=== PATIENT | male | born 1985 | race American Indian/Alaskan Native ===

== ENCOUNTER 2022-05-24 12:40 | Emergency (ER) | payer OTHER, SELFPAY ==
[2022-05-24 12:54] VITALS: BP 127/75; PULSE 71; RESP 16; TEMP 36.6; O2SAT 99
--- NOTE | 2022-05-24 13:04 | ED.GENADULT ---
HPI - General Adult General Chief complaint: Abdominal Pain Stated complaint: diarrhea, stomach ache Source: patient Mode of arrival: ambulatory Limitations: no limitations History of Present Illness HPI narrative: Patient presents for evaluation of diarrhea for the last five days. He states he was recently in [place] but returned one week ago. No new foods. No recent abx. Denies any abdominal pain, nausea, vomiting, or blood/mucous in the stool. He has tried imodium without considerable improvement in his symptoms thereafter. Four days ago he was assisting his son to use the restroom when he had a near-syncopal event. He experienced diaphoresis and felt like he was going to pass out. He was leaning against the wall and the wall braced him so he did not fall to the floor. He experienced some chills at that time. He did not have any chest pain, palpitations or SOB. He experience some chest tightness a few days ago but that has since resolved. No personal history of COVID. He does not smoke. No ETOH or illicit drug use. His son was experiencing diarrhea but his symptoms have improved. Pt states his symptoms have decreased in frequency. No additional complaints or concerns. Related Data Home Medications Medication Instructions Recorded Confirmed No Home Medications 05/24/22 05/24/22 Allergies Allergy/AdvReac Type Severity Reaction Status Date / Time No Known Allergies Allergy Verified 05/24/22 13:15 Review of Systems Review of Systems: CONSTITUTIONAL: Reports recent episode of diaphoresis and chills, none in the last few days. Denies fevers. EYES: Denies visual changes, redness, or discharge. ENT: Denies rhinorrhea, congestion, sore throat, or otalgia. CARDIOVASCULAR: Denies chest pain, palpitations, or edema. RESPIRATORY: Denies cough or dyspnea. GASTROINTESTINAL: Reports diarrhea. Denies abdominal pain, nausea, vomiting GENITOURINARY: Denies dysuria or hematuria. SKIN: Denies rash or itching. MUSCULOSKELETAL: Denies back pain, joint pain, or myalgia. NEUROLOGIC: Reports recent near syncopal event. Denies headache, numbness, dizziness, or weakness. PSYCHIATRIC: Denies anxiety or depression. [facility] Past Medical History Medical History (Updated 05/24/22 @ 13:46 by Cristobal Atkinson, [employer], BC) No pertinent past medical history Surgical History Surgical History No pertinent past surgical history Family History Family History Mother Family history non-contributory Social History Social History (Updated 05/24/22 @ 13:12 by Cristobal Atkinson, [facility], ) Smoking status: Never smoker Substance use: never Living arrangements: with family Gender identity (if verbalized by the patient): Male Sexual Orientation (if Verbalized by the Patient): Straight or Heterosexual Spiritual care concerns: No Exam Narrative: GENERAL: Well-appearing, well-nourished, and in no acute distress. HEAD: Normocephalic, atraumatic. EYES: PERRLA and EOMI. ENT: Nares clear, no rhinorrhea or epistaxis. Mucous membranes moist. Oropharynx without tonsillar hypertrophy exudate or other lesions. Bilateral TMs pearly chino nonbulging NECK: Supple. No adenopathy or masses. No carotid bruits or JVD CHEST: Clear to auscultation. No respiratory distress. No wheezes rales or rhonchi HEART: Regular rate and rhythm. No murmur heard. Normal peripheral pulses. ABDOMEN: Soft, nontender, nondistended, normal active bowel sounds. EXTREMITIES: Normal range of motion. No edema. SKIN: Warm, dry, no rash. NEURO: No focal deficits. Alert and oriented x3. PSYCH: Normal mood and affect. Course Course Emergency Course: This is a 37-year-old male who presented for evaluation of diarrhea. He had no abdominal tenderness to suggest colitis. COVID and influenza were negative. symptoms are likely viral in or
[2022-05-24 13:13] LABS: Glucose Point of Care 118 mg/dl (65-105)
== END 2022-05-24 13:49 | disposition home or self-care (01) ==
PROVIDERS: Emergency Provider Nurse Practitioner
DX: R19.7 Diarrhea, unspecified (principal); Z20.822 Contact with and (suspected) exposure to COVID-19
CPT/HCPCS: 82948; 87426; 87804; 99213; C9803; G0463

== ENCOUNTER 2022-06-07 13:36 | Emergency (ER) | payer OTHER, SELFPAY ==
[2022-06-07 13:47] VITALS: BP 137/72; PULSE 71; RESP 20; TEMP 36.3; O2SAT 97
[2022-06-07 13:52] VITALS: BP 137/72; PULSE 71; RESP 20; TEMP 36.3; O2SAT 97
--- NOTE | 2022-06-07 14:25 | ED.URI ---
HPI - URI/Sore Throat General Chief Complaint: Upper Respiratory Infection Stated Complaint: chest smiley,asthma Time Seen by Provider: 06/07/22 14:25 Source: patient, RN notes reviewed and old records reviewed Mode of arrival: ambulatory Limitations: no limitations History of Present Illness HPI Narrative: 37-year-old male who presents to [facility] with complaints of 3 day history of sore throat and some sinus drainage, wheezing started last night with increased shortness of breath this a.m. Patient reports 5-year-old child has been not feeling well either. Patient has scattered wheezing throughout lung field.he states that usually only has to use his inhaler during allergy season, had to use inhaler today.Patient has no acute respiratory distress, is able to speak in full sentences, has no tachypnea does have scattered wheezing noted throughout lung art. MD elicited complaint: cough, sore throat and other (wheezing) Pertinent past history: asthma Onset (ago): day(s) (3-4) Pain scale (0-10): 4 Treatments prior to arrival: other (inhaler) Related Data Allergies Allergy/AdvReac Type Severity Reaction Status Date / Time No Known Allergies Allergy Verified 06/07/22 13:47 Review of Systems Review of Systems: CONSTITUTIONAL: Denies fever, chills, or sweats. EYES: Denies visual changes, redness, or discharge. ENT: Denies rhinorrhea, congestion, positive for sore throat, or otalgia. CARDIOVASCULAR: Denies chest pain, palpitations, or edema. RESPIRATORY: Reports cough or dyspnea. GASTROINTESTINAL: Denies abdominal pain, nausea, vomiting, or diarrhea. GENITOURINARY: Denies dysuria or hematuria. SKIN: Denies rash or itching. MUSCULOSKELETAL: Denies back pain, joint pain, or myalgia. NEUROLOGIC: Denies headache, numbness, or weakness. PSYCHIATRIC: Denies anxiety or depression. All systems reviewed & are unremarkable except as noted in HPI and below PMFSH Past Medical History Medical History (Updated 06/08/22 @ 09:09 by Lisa Smith NP) Asthma Diabetes mellitus type 2, diet-controlled Surgical History Surgical History No pertinent past surgical history Family History Family History Mother Family history non-contributory Social History Social History (Updated 05/24/22 @ 13:12 by NAVEEN Kennedy, ) Smoking status: Never smoker Substance use: never Living arrangements: with family Gender identity (if verbalized by the patient): Male Sexual Orientation (if Verbalized by the Patient): Straight or Heterosexual Spiritual care concerns: No Comments At time of signature, agree with nursing past medical, surgical, social and family history. There is no relevant family history pertinent to the presenting complaint Exam Narrative: GENERAL: Well-appearing, well-nourished, and in no acute distress. HEAD: Normocephalic, atraumatic. EYES: PERRLA and EOMI. ENT: Nares clear, no rhinorrhea or epistaxis. Mucous membranes moist.TM's normal with good light reflex, throat red with tonsil swelling present NECK: Supple.lymphadenopathy CHEST: Scattered wheezing to auscultation. No respiratory distress.some cough noted SAO2 97% no tachypnea or acute dyspnea HEART: Regular rate and rhythm. No murmur heard. Normal peripheral pulses. ABDOMEN: Soft, nontender, nondistended, normal active bowel sounds. EXTREMITIES: Normal range of motion. No edema. SKIN: Warm, dry, no rash. NEURO: No focal deficits. Alert and oriented x3. Course Course Emergency Course: Patient is aware of diagnosis, understands and agrees to treatment plan.? Anticipatory guidance given.? Patient agrees to follow-up as directed and is aware of reasons to seek care at the emergency department. Portions of this record may have been created with voice recognition software Level of Care: Express Care Visit Vital Signs Vital sign
[2022-06-07 15:13] VITALS: PULSE 76; RESP 18; O2SAT 98
== END 2022-06-07 15:13 | disposition home or self-care (01) ==
PROVIDERS: Emergency Provider Registered Nurse; PCP Family Medicine
DX: J02.0 Streptococcal pharyngitis (principal); J45.901 Unspecified asthma with (acute) exacerbation; E11.9 Type 2 diabetes mellitus without complications
CPT/HCPCS: 87880; 94640; 99213; G0463

== ENCOUNTER 2025-03-17 21:25 | Emergency (ER) | payer OTHER, SELFPAY ==
[2025-03-17] VITALS (10 sets, daily range): BP systolic 128–136; BP diastolic 72–81; PULSE 61–77; RESP 12–25; TEMP 36.9; O2SAT 97–100
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
[2025-03-17] MEDS: ACETAMINOPHEN 500 MG TABLET 1000 MG PO (22:59)
[2025-03-17] MEDS: KETOROLAC 30 MG/ML VIAL (*BKC) IM (22:59)
[2025-03-17] MEDS: diazePAM INJ (*CRX) 10 MG/2 ML SYRINGE 5 MG IM (22:59)
== END 2025-03-17 23:07 | disposition home or self-care (01) ==
LOC: ANHED 22:46
PROVIDERS: Emergency Provider Emergency Medicine; PCP Family Medicine
DX: S59.901A Unspecified injury of right elbow, initial encounter (principal); S89.91XA Unspecified injury of right lower leg, initial encounter; E11.9 Type 2 diabetes mellitus without complications; F41.9 Anxiety disorder, unspecified; V43.52XA Car driver injured in collision with other type car in traffic accident, initial encounter
CPT/HCPCS: 73080; 73562; 96372; 99284; A9270; J1885; J3360